=== PATIENT | female | born 1975 | race Caucasian/White ===

== ENCOUNTER 2025-02-27 22:13 | Emergency (ER) | payer BC, SELFPAY ==
[2025-02-27 22:14] VITALS: BP 100/67; PULSE 62; RESP 16; TEMP 36.9; O2SAT 100; BMI 19.1
[2025-02-27 22:20] VITALS: BP 100/67; PULSE 62; RESP 16; TEMP 36.9; O2SAT 100
--- NOTE | 2025-02-27 22:31 | EX.ED.DYSGE1 ---
HPI History of Present Illness Chief Complaint: Flank Pain Informant: patient Onset/Context/Timing Onset: Days Context: Gradual Onset Timing: Continuous Quality: Aching Location: Left flank Worsened by: Nothing Relieved by: Nothing Narrative Narrative: Patient presents with left flank pain that became worse today. Patient states she was told by her primary care physician that she could have a life-threatening urinary tract infection. Patient states she has pain over her left flank area. Patient states it radiates into her back. Patient denies any nausea or vomiting. Patient denies any fevers or chills. Patient states she was admitted for this at [facility] a few weeks ago. Patient states she completed a course of antibiotics. [facility] Medical History GERD (gastroesophageal reflux disease) Anxiety Hx of sciatica Urine incontinence Pancreatitis Home Medications ?Medication ?Instructions ?Recorded ?Last Taken ?Type alprazolam 0.5 mg tablet (Xanax) 0.5 mg PO BID 02/27/25 Unknown History aspirin 81 mg capsule 81 mg PO DAILY 02/27/25 Unknown History estradiol 1 mg tablet (Estrace) 1 mg PO DAILY 02/27/25 Unknown History famotidine 40 mg tablet 40 mg PO QHS 02/27/25 Unknown History ferrous sulfate 325 mg (65 mg 325 mg PO DAILY 02/27/25 Unknown History iron) tablet,delayed release gemfibrozil 600 mg tablet 600 mg PO BID 02/27/25 Unknown History multivitamin 1 tab PO DAILY 02/27/25 Unknown History ondansetron 4 mg disintegrating 4 mg PO TID 02/27/25 Unknown History tablet oxycodone 5 mg tablet 5 mg PO TID 02/27/25 02/27/25 18:00 History pantoprazole 40 mg tablet,delayed 40 mg PO DAILY 02/27/25 Unknown History release pregabalin 150 mg capsule (Lyrica) 150 mg PO BID 02/27/25 Unknown History tizanidine 4 mg capsule 4 mg PO QHS 02/27/25 Unknown History topiramate 50 mg tablet (Topamax) 50 mg PO BID 02/27/25 Unknown History venlafaxine 75 mg tablet 225 mg PO QHS 02/27/25 Unknown History levofloxacin 750 mg tablet 750 mg PO DAILY #7 tabs 02/28/25 Unknown Rx Allergy/AdvReac Type Severity Reaction Status Date / Time Sulfa (Sulfonamide Allergy Intermediate Rash Verified 02/27/25 22:16 Antibiotics) Surgical History Hx of hysterectomy Hx of cholecystectomy Hx of ureter repair History of partial pancreatectomy History of partial splenectomy Social History Smoking Status: Heavy Smoker (>10/day) ROS ROS ED Constitutional Constitutional ED: Denies chills or fever(s) Eyes Eyes: Denies blurry vision or change in vision ENT ENT ED: Denies rhinorrhea or sore throat Cardiovascular Cardiovascular: Denies chest pain or palpitations Respiratory/Chest Respiratory/Chest: Denies cough or dyspnea Gastrointestinal Gastrointestinal: Denies nausea or vomiting Genitourinary Genitourinary ED: Reports dysuria; Denies hematuria Musculoskeletal Musculoskeletal: Reports back pain and neck pain Integumentary Denies abscess or rash Neurologic Neurologic: Denies headache(s) or weakness Allergic/Immunologic Allergic/Immunologic ED: Denies mouth swelling or urticaria EXAM Physical Exam Const Vital Signs: 02/27/25 22:14 02/27/25 22:20 02/27/25 23:20 Temperature 98.5 F 98.5 F 98.5 F Temperature Source Oral Oral Oral Pulse Rate 62 62 76 Respiratory Rate 16 16 16 Blood Pressure 100/67 100/67 105/73 Blood Pressure Mean 78 78 83 Pulse Ox 100 100 100 Oxygen Delivery Method Room Air Room Air Room Air 02/28/25 00:00 02/28/25 01:00 Temperature 98.8 F 98.7 F Temperature Source Oral Oral Pulse Rate 71 75 Respiratory Rate 18 18 Blood Pressure 89/69 L 90/68 Blood Pressure Mean 75 75 Pulse Ox 100 100 Oxygen Delivery Method Room Air Room Air Positive well nourished and well developed General Appearance ED: well developed and NAD HEENT Reports moist mucous membranes Neck supple and no JVD Resp normal respiratory effort and clear to auscultation bilaterally Cardio regular rate and regular rhythm GI non-distended Palpation: soft and tender LLQ and suprapubic; Negative for guarding or rebound tenderness present Back/Spine General Back: CVA tenderness left Extremity normal to inspection Neuro oriented x3, CN's II-XII intact bilaterally and no sensory deficits noted Sensorium / Orientation: alert Motor Exam: strength 5/5 throughout Psych mental status grossly normal MDM MDM MDM Narrative Medical decision making narrative: Differential diagnosis includes ureteral calculus, pyelonephritis, urinary tract infection, diverticulitis, electrolyte abnormality, bowel obstruction, perforation. CT scan of the abdomen pelvis will be obtained to assess for ureteral calculus, pyelonephritis, bowel obstruction, and perforation. CBC will be obtained to assess for leukocytosis and anemia. Basic metabolic profile will be obtained to assess for electrolyte abnormality and renal function. Urinalysis will be obtained to assess for urinary tract infection and hematuria. Urine culture will be obtained to assess for urinary tract infection. History & Record Review Additional record(s) reviewed:: No prior records Lab Data Attestation: I reviewed the patient's lab results. Lab results narrative: Urinalysis was reviewed. Leukocyte esterase was 500 with 10-25 white blood cells and 1+ bacteria. CBC was reviewed. There is a leukocytosis of 24.5. Hemoglobin was 10.1 and hematocrit was 30.5. Platelets were slightly elevated at 504. Basic metabolic profile was reviewed. Potassium was slightly low at 3.2. CO2 was slightly low at 19.2. Anion gap was normal. BUN and creatinine were normal. Labs: Laboratory Results - last 24 hr 02/27/25 02/27/25 22:40 23:50 WBC 24.5 H RBC 3.22 L Hgb 10.1 L Hct 30.5 L MCV 94.7 MCH 31.4 MCHC 33.1 RDW Std Deviation 55.4 H RDW Coeff of Daniel 15.9 H Plt Count 504 H MPV 11.7 Immature Gran % (Auto) 0.900 Neut % (Auto) 68.2 Lymph % (Auto) 21.3 Whitman % (Auto) 7.2 Eos % (Auto) 2.0 Baso % (Auto) 0.4 Absolute Neuts (auto) 16.7 H Absolute Lymphs (auto) 5.22 H Nucleated RBC % 0 Differential Comment SCANNED Sodium 134 Potassium 3.2 L Chloride 104 Carbon Dioxide 19.2 L Anion Gap 11 BUN 4 Creatinine 1.00 Estim Creat Clear Calc 49.80 L Est GFR (MDRD) Non-Af 68 BUN/Creatinine Ratio 4.4 L Glucose 80 Calcium 8.1 Urine Color Yellow Urine Clarity Clear Urine pH 6.5 Ur Specific Kramer 1.005 Urine Protein 15 H Urine Glucose (UA) Normal Urine Ketones Negative Urine Occult Blood 10 H Urine Nitrite Negative Urine Bilirubin Negative Urine Urobilinogen Normal Ur Leukocyte Esterase 500 H Urine RBC 0-5 SEEN Urine WBC 10-25 SEEN Ur Squamous Epith Cells 0-5 SEEN Urine Bacteria 1+ Urine Mucus 0 SEEN Radiography Diagnostic Testing: Clinical Impression(s) from Imaging Studies Abdomen/Pelvis CT 02/27/25 23:25 IMPRESSION: Diffuse thickening of the bladder suggestive of cystitis. Mild multifocal scarring of the left kidney. Mild fullness of the right collecting system, probably reflux. Mild left hydroureteronephrosis with left urothelial thickening without obstructing stone. Probably reflux with an ascending urinary tract infection. Prior hysterectomy. Prior splenectomy. Prior distal pancreatectomy. Multiple chronic calcifications of the pancreas. Prior cholecystectomy. Hepatomegaly. Hepatic steatosis. Diffuse thickening of the stomach suggestive of gastritis. Surgical changes of the lower aspect of the anterior abdominal wall. Reading Location: [place] [id number] CT scan of the abdomen pelvis was obtained. There is thickening of the bladder. There is mild left hydroureter and hydronephrosis without obstructing stone. This is probably reflux with an ascending urinary tract infection. This was interpreted by the radiologist and was also independently reviewed by myself. Treatment and Re-Evaluation :: Patient was given IV fluids. Patient was given a dose of Rocephin here. Urine culture was ordered. Patient was advised of her findings. Patient was given a prescription for Levaquin. Patient was instructed to follow-up with her primary care physician in 5 to 7 days. Patient was instructed to return if worse in any way. Patient understood and was agreeable with the plan. All questions were answered. Discharge Plan Triage Chief Complaint: Flank Pain ED Provider: Reji Abdul Dx/Rx/DC Orders Clinical Impression: Urinary tract infection, Leukocytosis Instructions: ED Pyelonephritis, Female (Adult) Prescriptions: New levofloxacin 750 mg tablet 750 mg PO DAILY Qty: 7 0RF No Action estradiol [Estrace] 1 mg tablet 1 mg PO DAILY Rx Instructions: off 1 week; repeat cycle pantoprazole 40 mg tablet,delayed release (DR/EC) 40 mg PO DAILY topiramate [Topamax] 50 mg tablet 50 mg PO BID pregabalin [Lyrica] 150 mg capsule 150 mg PO BID gemfibrozil 600 mg tablet 600 mg PO BID ferrous sulfate 325 mg (65 mg iron) tablet,delayed release (DR/EC) 325 mg PO DAILY venlafaxine 75 mg tablet 225 mg PO QHS famotidine 40 mg tablet 40 mg PO QHS ondansetron 4 mg tablet,disintegrating 4 mg PO TID aspirin 81 mg capsule 81 mg PO DAILY oxycodone 5 mg tablet 5 mg PO TID tizanidine 4 mg capsule 4 mg PO QHS multivitamin Tablet 1 tab PO DAILY alprazolam [Xanax] 0.5 mg tablet 0.5 mg PO BID Primary Care Provider: Stuart Wray Referrals: Stuart Wray MD [Primary Care Provider] - 5-7 Days Print Language: Tamazight
[2025-02-27 23:02] LABS: Mucous, Urine 0 SEEN /hpf (<or=2+)
[2025-02-27 23:05] LABS: Color, Urine Yellow (Yellow); Glucose, Dipstick Normal (Normal); Ketone-Dipstick Negative (Negative); Leukocyte Esterase-Dipstick 500 /ul (Negative); Nitrite-Dipstick Negative (Negative); Occult Blood-Urine 10 /ul (Negative); Protein-Dipstick 15 mg/dl (Negative); Specific Gravity, Urine 1.005 (1.002-1.030); Urine Bilirubin Dipstick Negative (Negative); Urine Clarity Clear (Clear); Urine Urobilinogen Normal (Normal); Urine pH 6.5 (5.0 - 8.0)
[2025-02-27 23:11] LABS: Bacteria 1+ /hpf (None Seen); Red Blood Cells-Urine 0-5 SEEN /hpf (0-5); Squamous Epithelial Cells - UA 0-5 SEEN /hpf (5-10); White Blood Cells 10-25 SEEN /hpf (0-5)
[2025-02-27 23:20] VITALS: BP 105/73; PULSE 76; RESP 16; TEMP 36.9; O2SAT 100
--- NOTE | 2025-02-27 23:25 | CT_ITS ---
PROCEDURE: ABDOMEN/PELVIS WITHOUT CONT 02/28/2025 REASON FOR EXAM: LEFT FLANK PAIN TECHNIQUE: ABDOMEN/PELVIS WITHOUT CONT Noncontrast technique limits evaluation of the abdominal and pelvic viscera. Coronal and Sagittal reconstruction series were provided. One or more dose reduction techniques were used (e.g., Automated exposure control, adjustment of the mA and/or kV according to patient size, use of iterative reconstruction technique). ORAL CONTRAST TYPE: None. COMPARISON: None. FINDINGS: Diffuse thickening of the bladder suggestive of cystitis. Mild multifocal scarring of the left kidney. Mild fullness of the right collecting system, probably reflux. Mild left hydroureteronephrosis with left urothelial thickening without obstructing stone. Probably reflux with an ascending urinary tract infection. Prior hysterectomy. Prior splenectomy. Prior distal pancreatectomy. Multiple chronic calcifications of the pancreas. Prior cholecystectomy. Hepatomegaly. Hepatic steatosis. Diffuse thickening of the stomach suggestive of gastritis. Surgical changes of the lower aspect of the anterior abdominal wall. The visualized lung bases are unremarkable. Normal extrahepatic biliary system. Normal bilateral adrenal glands. Normal size of the right kidney. There is no right renal mass. There are no right renal calculi. There is no right hydronephrosis. Normal visualized right ureter. There is no left renal mass. There are no left renal calculi. Normal small intestine. Normal colon. The appendix is visualized and appears normal. There is no demonstrated peritoneal fluid. Normal abdominal aorta. Normal inferior vena cava. Normal retroperitoneum. There is no pelvic mass lesion or lymphadenopathy. There is no pelvic fluid. CT/Abdomen/Pelvis without Cont IMPRESSION: Diffuse thickening of the bladder suggestive of cystitis. Mild multifocal scarring of the left kidney. Mild fullness of the right collecting system, probably reflux. Mild left hydroureteronephrosis with left urothelial thickening without obstruc ting stone. Probably reflux with an ascending urinary tract infection. Prior hysterectomy. Prior splenectomy. Prior distal pancreatectomy. Multiple chronic calcifications of the pancreas. Prior cholecystectomy. Hepatomegaly. Hepatic steatosis. Diffuse thickening of the stomach suggestive of gastritis. Surgical changes of the lower aspect of the anterior abdominal wall. Reading Location: [place] [id number]
[2025-02-28] VITALS: BP 89/69; PULSE 71; RESP 18; TEMP 37.1; O2SAT 100
[2025-02-28 00:08] LABS: Absolute Lymphocyte Count 5.22 X10^3/uL (0.83-4.51); Absolute Neutrophil Count 16.7 X10^3/uL (2.0-7.7); Basophil# 0.11 X10^3/uL; Basophil% 0.4 % (0-1); Hematocrit 30.5 % (37-47); Hemoglobin 10.1 g/dL (12.0-15.0); Lymphocyte # 5.22 X10^3/ul (0.83-4.51); Lymphocyte % 21.3 % (19-41); Mean Corp Hgb Conc 33.1 g/dL (32-36); Mean Corpuscular Hgb 31.4 pg (27.0-32.0); Mean Corpuscular Volume 94.7 fL (81-99); Mean Platelet Vol. 11.7 fl (6.2-12.0); Monocyte# 1.77 X10^3/uL; Monocyte% 7.2 % (0-10); NRBC Flagged by Analyzer 0 % (0-5); Neutrophil # 16.71 X10^3/uL (2.7-7.7); Neutrophil % 68.2 % (47-70); POSITIVE DIFFERENTIAL YES; POSITIVE MORPHOLOGY YES; Platelet Count 504 K/mm3 (150-450); RBC Distribution Width CV 15.9 % (11.6-14.6); RBC Distribution Width SD 55.4 fl (35.1-43.9); Red Blood Count 3.22 M/mm3 (4.2-5.4); White Blood Count 24.5 K/mm3 (4.4-11.0)
[2025-02-28 00:31] LABS: Anion Gap 11 (5-15); BUN 4 mg/dL (4-19); BUN/Creat Ratio 4.4 RATIO (10-20); Calcium,Total 8.1 mg/dL (7.6-11.0); Carbon Dioxide 19.2 mmol/L (21.0-32.0); Chloride 104 mmol/L (98-108); EST Glomerular Filtration Rate 68 (>60); Glucose 80 mg/dL (70-99); Potassium 3.2 mmol/L (3.3-5.1); Sodium Level 134 mmol/L (133-145)
[2025-02-28 00:47] LABS: Differential Indicated SCAN CRITERIA MET
[2025-02-28 00:54] LABS: Differential Comment SCANNED
[2025-02-28 01:00] VITALS: BP 90/68; PULSE 75; RESP 18; TEMP 37.1; O2SAT 100
[2025-02-28] MEDS: 0.9% Normal Saline (1000mL) 1,000 ML 1000 ML IV (01:15)
[2025-02-28] MEDS: Ceftriaxone 1 GM/50 ML BAG IV (01:26)
[2025-02-28 02:00] VITALS: BP 93/64; PULSE 71; RESP 16; TEMP 37.1; O2SAT 100
[2025-02-28 02:12] VITALS: BP 93/64; PULSE 71; RESP 16; TEMP 37.1; O2SAT 100
== END 2025-02-28 03:20 | disposition home or self-care (01) ==
LOC: ED 23:09
PROVIDERS: Emergency Provider Emergency Medicine; PCP Family Medicine; Visit Provider Emergency Medicine
DX: N13.6 Pyonephrosis (principal); F17.200 Nicotine dependence, unspecified, uncomplicated
CPT/HCPCS: 74176; 80048; 81001; 85025; 87086; 87088; 96361; 96365; 99283; A4216